=== PATIENT | male | born 1980 | race Caucasian/White ===

== ENCOUNTER 2025-08-23 00:23 | Emergency (ER) | payer BC, OTHER ==
[~2025-08-23] VITALS: Ht 182.9 cm; Wt 94.5 kg
[2025-08-23 00:27] VITALS: TEMP 97.9
[2025-08-23 02:13] LABS: PLATELET COUNT (AUTO) 202 K/uL (150-450); RED BLOOD CELL COUNT(AUTO) 4.40 MIL/uL (4.50-5.90); RED CELL DISTRIBUTION WIDTH 12.9 % (11.5-14.5); WHITE BLOOD COUNT (AUTO) 4.3 K/uL (4.5-11.0)
[2025-08-23 02:21] LABS: CALCIUM, TOTAL 8.8 mg/dL (8.8-10.5); CREATININE 0.96 mg/dL (0.60-1.30); GLOMERULAR FILTR. RATE CALC > 60 mL/min (>60); GLUCOSE,RANDOM 109 mg/dL (70-110); SODIUM SERUM 138 mmol/L (136-145); UREA NITROGEN, BLOOD 10 mg/dL (7-18)
[2025-08-23 02:30] LABS: TROPONIN I-HIGH SENSITIVITY 4 ng/L (<76)
[2025-08-23 02:33] LABS: ASPARTATE AMINOTRANSFERASE 29.0 U/L (15-37); TOTAL PROTEIN, SERUM 7.5 g/dL (6.4-8.2)
[2025-08-23 03:05] VITALS: BP 138/95; PULSE 66; RESP 16; O2SAT 100
[2025-08-23] MEDS: ONDANSETRON 4 MG TABLET PO ONE (03:48)
== END 2025-08-23 06:16 | disposition home or self-care (01) ==
LOC: EMS 00:30
DX: R07.89 Other chest pain (principal); R06.02 Shortness of breath; M54.9 Dorsalgia, unspecified; K21.9 Gastro-esophageal reflux disease without esophagitis; R11.2 Nausea with vomiting, unspecified; E78.00 Pure hypercholesterolemia, unspecified; I10 Essential (primary) hypertension
CPT/HCPCS: 99285; 71045; 80048; 80076; 83880; 84484; 85025; 36415; 93005; Q0162